=== PATIENT | male | born 1990 | race Caucasian/White ===

== ENCOUNTER 2023-01-04 13:39 | Inpatient (IN) | payer OTHER ==
[~2023-01-04] VITALS: Ht 157.5 cm; Wt 73.9 kg
[2023-01-04] MEDS ORDERED: MELATONIN 3 MG TABLET PO PRN (15:45)
[2023-01-04 17:00] VITALS: BP 138/78; PULSE 73; RESP 18; TEMP 98.6; O2SAT 98
[2023-01-04] MEDS ORDERED: SENNOSIDES 8.6 MG TABLET PO PRN (18:00)
[2023-01-04] MEDS ORDERED: DOCUSATE SODIUM 100 MG CAPSULE PO PRN (18:15)
[2023-01-04] MEDS ORDERED: POLYETHYLENE GLYCOL 3350 17 GM PACKET PO PRN (18:15)
[2023-01-04] MEDS: ACETAMINOPHEN 325 MG TABLET PO SCH ×2 (19:43→23:02)
[2023-01-04 20:20] VITALS: BP 131/71; PULSE 98; RESP 20; TEMP 99.7; O2SAT 98
[2023-01-04] MEDS: GABAPENTIN 300 MG CAPSULE PO SCH (20:22)
[2023-01-04 21:20] VITALS: TEMP 99
[2023-01-04] MEDS: MELATONIN 5 MG TABLET PO PRN (23:29)
[2023-01-05 00:40] VITALS: O2SAT 99
[2023-01-05] MEDS: ACETAMINOPHEN 325 MG TABLET PO SCH ×3 (06:18→23:07)
[2023-01-05 06:27] VITALS: TEMP 98.6
[2023-01-05 07:19] LABS: BASOPHILS % (AUTO) 0.4 % (0.0-2.0); EOSINOPHILS % (AUTO) 0.6 % (1.0-6.0); HEMATOCRIT 33.2 % (41-53); HEMOGLOBIN 11.5 g/dL (13.5-17.5); LYMPHOCYTES # (AUTO) 2.1 K/uL (1.0-4.8); LYMPHOCYTES % (AUTO) 17.6 % (22.0-44.0); MEAN CORPUSCULAR HEMOGLOBIN 31.6 pg (26.0-34.0); MEAN CORPUSCULAR HGB CONC 34.5 G/dL (31.0-37.0); MEAN CORPUSCULAR VOLUME 92 fL (80-100); MONOCYTES # (AUTO) 1.3 K/uL (0.1-1.0); MONOCYTES % (AUTO) 11.3 % (2.0-9.0); NEUTROPHILS # (AUTO) 8.3 K/uL (1.8-7.7); NEUTROPHILS % (AUTO) 70.1 % (40.0-70.0); PLATELET COUNT (AUTO) 234 K/uL (150-450); RED BLOOD CELL COUNT(AUTO) 3.63 MIL/uL (4.50-5.90); RED CELL DISTRIBUTION WIDTH 12.4 % (11.5-14.5)
[2023-01-05 07:33] LABS: ALANINE AMINOTRANSFERASE 58 U/L (12-78); ALBUMIN 3.3 g/dL (3.4-5.0); ALKALINE PHOSPHATASE 64 U/L (46-116); ANION GAP 9 mmol/L (8-16); ASPARTATE AMINOTRANSFERASE 33 U/L (15-37); BILIRUBIN,TOTAL 1.2 mg/dL (0.1-1.0); CALCIUM, TOTAL 9.4 mg/dL (8.8-10.5); CARBON DIOXIDE 27 mmol/L (22-29); CHLORIDE 98 mmol/L (98-107); CREATININE 0.74 mg/dL (0.60-1.30); GLOMERULAR FILTR. RATE CALC > 60 mL/min (>60); GLUCOSE,RANDOM 107 mg/dL (70-110); POTASSIUM 4.2 mmol/L (3.5-5.1); SODIUM SERUM 134 mmol/L (136-145); TOTAL PROTEIN, SERUM 7.4 g/dL (6.4-8.2)
[2023-01-05] MEDS: GABAPENTIN 300 MG CAPSULE PO SCH ×3 (08:10→21:01)
[2023-01-05] MEDS: ENOXAPARIN SODIUM 40 MG/0.4 ML PF SYRINGE SQ SCH (08:10)
[2023-01-05 09:29] VITALS: BP 133/76; PULSE 97; RESP 20; TEMP 98.9; O2SAT 74
[2023-01-05 10:03] VITALS: O2SAT 97
[2023-01-05 21:01] VITALS: BP 151/82; PULSE 100; RESP 20; TEMP 98.5; O2SAT 100
[2023-01-05] MEDS: MELATONIN 5 MG TABLET PO PRN (22:23)
[2023-01-06] MEDS: IBUPROFEN 600 MG TABLET PO PRN ×2 (00:30→08:47)
[2023-01-06] MEDS: ACETAMINOPHEN 325 MG TABLET PO SCH ×4 (05:04→18:00)
[2023-01-06] MEDS: ENOXAPARIN SODIUM 40 MG/0.4 ML PF SYRINGE SQ SCH (08:48)
[2023-01-06] MEDS: GABAPENTIN 300 MG CAPSULE PO SCH ×3 (08:48→21:15)
[2023-01-06 09:02] VITALS: BP 134/76; PULSE 74; RESP 18; TEMP 99.1; O2SAT 98
[2023-01-06 21:15] VITALS: BP 137/91; PULSE 99; RESP 18; TEMP 99.3; TEMP 99.4; O2SAT 99
[2023-01-07] MEDS: ACETAMINOPHEN 325 MG TABLET PO SCH ×4 (00:02→18:05)
[2023-01-07 08:05] VITALS: BP 138/84; PULSE 76; RESP 18; TEMP 97.9; O2SAT 97
[2023-01-07] MEDS: ENOXAPARIN SODIUM 40 MG/0.4 ML PF SYRINGE SQ SCH (08:19)
[2023-01-07] MEDS: GABAPENTIN 300 MG CAPSULE PO SCH ×3 (08:19→20:34)
[2023-01-07] MEDS: IBUPROFEN 600 MG TABLET PO PRN (09:52)
[2023-01-07 10:58] LABS: APPEARANCE,URINE CLEAR (CLEAR); BILIRUBIN,URINE NEGATIVE (NEGATIVE); GLUCOSE, URINE (UA) NEGATIVE (NEGATIVE); KETONES,URINE NEGATIVE (NEGATIVE); LEUKOCYTE ESTERASE ,URINE NEGATIVE (NEGATIVE); NITRATE,URINE NEGATIVE (NEGATIVE); OCCULT BLOOD,URINE TRACE (NEGATIVE); PROTEIN,URINE NEGATIVE (NEGATIVE); UROBILINOGEN,URINE <=1.0 mg/dL (<=1.0)
[2023-01-07 12:06] LABS: BACTERIA,URINE None Seen /HPF (None Seen); RBC,URINE 0-2 /HPF (0-2); SQUAMOUS EPITHELIAL CELL,UR None Seen /LPF (None Seen); WBC,URINE None Seen /HPF (0-5)
[2023-01-07 20:30] VITALS: O2SAT 100
[2023-01-08] MEDS: OxyCODONE HCL 5 MG IR TABLET PO PRN (00:02)
[2023-01-08] MEDS: ACETAMINOPHEN 325 MG TABLET PO SCH ×4 (00:06→18:09)
[2023-01-08 01:00] VITALS: BP 136/93; PULSE 86; RESP 18; TEMP 99.1; O2SAT 100
[2023-01-08 06:55] LABS: BASOPHILS % (AUTO) 0.3 % (0.0-2.0); HEMATOCRIT 33.4 % (41-53); HEMOGLOBIN 11.5 g/dL (13.5-17.5); LYMPHOCYTES # (AUTO) 2.2 K/uL (1.0-4.8); LYMPHOCYTES % (AUTO) 19.2 % (22.0-44.0); MEAN CORPUSCULAR HEMOGLOBIN 31.7 pg (26.0-34.0); MEAN CORPUSCULAR HGB CONC 34.4 G/dL (31.0-37.0); MEAN CORPUSCULAR VOLUME 92 fL (80-100); MONOCYTES # (AUTO) 1.2 K/uL (0.1-1.0); NEUTROPHILS # (AUTO) 8.1 K/uL (1.8-7.7); NEUTROPHILS % (AUTO) 69.5 % (40.0-70.0); PLATELET COUNT (AUTO) 289 K/uL (150-450); RED BLOOD CELL COUNT(AUTO) 3.63 MIL/uL (4.50-5.90); RED CELL DISTRIBUTION WIDTH 12.7 % (11.5-14.5)
[2023-01-08] MEDS: GABAPENTIN 300 MG CAPSULE PO SCH ×3 (08:14→20:49)
[2023-01-08 08:15] VITALS: BP 137/88; PULSE 88; RESP 20; TEMP 97.6; O2SAT 98
[2023-01-08 09:29] LABS: ANION GAP 8 mmol/L (8-16); CALCIUM, TOTAL 9.2 mg/dL (8.8-10.5); CARBON DIOXIDE 27 mmol/L (22-29); CHLORIDE 101 mmol/L (98-107); CREATININE 0.68 mg/dL (0.60-1.30); GLOMERULAR FILTR. RATE CALC > 60 mL/min (>60); GLUCOSE,RANDOM 87 mg/dL (70-110); POTASSIUM 4.1 mmol/L (3.5-5.1); SODIUM SERUM 136 mmol/L (136-145)
[2023-01-08 16:00] VITALS: O2SAT 98
[2023-01-08 20:48] VITALS: BP 150/92; PULSE 100; RESP 20; TEMP 98.4; O2SAT 98
[2023-01-08] MEDS: IBUPROFEN 600 MG TABLET PO PRN (20:48)
[2023-01-09] MEDS: ACETAMINOPHEN 325 MG TABLET PO SCH ×6 (00:26→17:24)
[2023-01-09] MEDS: OxyCODONE HCL 5 MG IR TABLET PO PRN ×2 (01:59→16:33)
[2023-01-09 02:35] VITALS: O2SAT 98
[2023-01-09 08:05] VITALS: BP 132/81; PULSE 80; RESP 18; TEMP 98.1; O2SAT 98
[2023-01-09] MEDS: GABAPENTIN 300 MG CAPSULE PO SCH ×3 (08:26→21:04)
[2023-01-09 08:56] VITALS: O2SAT 98
[2023-01-09 11:35] VITALS: BP 136/80; PULSE 85; RESP 18; O2SAT 98
[2023-01-09] MEDS: IBUPROFEN 600 MG TABLET PO PRN (15:07)
[2023-01-09 21:04] VITALS: BP 138/80; PULSE 100; PULSE 98; RESP 20; TEMP 98.3; O2SAT 100
[2023-01-10] MEDS: ACETAMINOPHEN 325 MG TABLET PO SCH ×4 (00:01→18:06)
[2023-01-10] MEDS: GABAPENTIN 300 MG CAPSULE PO SCH ×3 (08:23→19:42)
[2023-01-10 09:09] VITALS: O2SAT 97
[2023-01-10 09:38] VITALS: BP 143/78; PULSE 97; RESP 20; TEMP 98.6; O2SAT 97
[2023-01-10] MEDS: OxyCODONE HCL 5 MG IR TABLET PO PRN (19:43)
[2023-01-10 21:00] VITALS: BP 137/90; PULSE 109; RESP 20; TEMP 98.5; O2SAT 98
[2023-01-11] MEDS: ACETAMINOPHEN 325 MG TABLET PO SCH ×4 (00:33→23:04)
[2023-01-11] MEDS: OxyCODONE HCL 5 MG IR TABLET PO PRN ×2 (02:13→19:56)
[2023-01-11 08:00] VITALS: BP 149/78; PULSE 98; RESP 18; TEMP 99.5; O2SAT 98
[2023-01-11] MEDS: GABAPENTIN 300 MG CAPSULE PO SCH ×3 (08:22→21:04)
[2023-01-11] MEDS: IBUPROFEN 600 MG TABLET PO PRN (08:22)
[2023-01-11 09:15] VITALS: TEMP 99
[2023-01-11 13:00] VITALS: TEMP 98.1
[2023-01-11 19:56] VITALS: BP 146/88; PULSE 106; RESP 20; TEMP 98.7; O2SAT 100
[2023-01-11 20:00] VITALS: BP 146/88; PULSE 106; RESP 20; TEMP 98.7; O2SAT 100
[2023-01-11] MEDS: ETHYL ALCOHOL 62% ANTISEPTIC NASAL SANITIZER 0.6 ML AMPUL NASAL SCH (21:04)
[2023-01-12] MEDS: OxyCODONE HCL 5 MG IR TABLET PO PRN ×2 (00:40→22:59)
[2023-01-12] MEDS: ACETAMINOPHEN 325 MG TABLET PO SCH ×3 (06:00→18:34)
[2023-01-12] MEDS: GABAPENTIN 300 MG CAPSULE PO SCH ×3 (08:24→20:43)
[2023-01-12 08:30] VITALS: BP 137/81; PULSE 102; RESP 18; TEMP 97.7; O2SAT 98
[2023-01-12] MEDS: ETHYL ALCOHOL 62% ANTISEPTIC NASAL SANITIZER 0.6 ML AMPUL NASAL SCH ×2 (08:34→20:42)
[2023-01-12] MEDS: IBUPROFEN 600 MG TABLET PO PRN (16:06)
[2023-01-12 20:43] VITALS: BP 137/82; PULSE 107; RESP 18; TEMP 99; O2SAT 98
[2023-01-12] MEDS: MELATONIN 5 MG TABLET PO PRN (20:43)
[2023-01-13] MEDS: ACETAMINOPHEN 325 MG TABLET PO SCH ×4 (00:53→18:35)
[2023-01-13 06:00] VITALS: TEMP 98.7
[2023-01-13] MEDS: GABAPENTIN 300 MG CAPSULE PO SCH ×3 (08:01→20:35)
[2023-01-13] MEDS: ETHYL ALCOHOL 62% ANTISEPTIC NASAL SANITIZER 0.6 ML AMPUL NASAL SCH ×2 (08:01→20:37)
[2023-01-13 08:08] VITALS: BP 137/86; PULSE 84; RESP 18; TEMP 98.2; O2SAT 98
[2023-01-13 10:02] LABS: BASOPHILS % (AUTO) 0.3 % (0.0-2.0); EOSINOPHILS % (AUTO) 0.5 % (1.0-6.0); HEMATOCRIT 33.3 % (41-53); HEMOGLOBIN 11.3 g/dL (13.5-17.5); LYMPHOCYTES # (AUTO) 1.4 K/uL (1.0-4.8); LYMPHOCYTES % (AUTO) 15.3 % (22.0-44.0); MEAN CORPUSCULAR HEMOGLOBIN 31.3 pg (26.0-34.0); MEAN CORPUSCULAR HGB CONC 34.1 G/dL (31.0-37.0); MEAN CORPUSCULAR VOLUME 92 fL (80-100); MONOCYTES % (AUTO) 10.3 % (2.0-9.0); NEUTROPHILS # (AUTO) 6.9 K/uL (1.8-7.7); NEUTROPHILS % (AUTO) 73.6 % (40.0-70.0); PLATELET COUNT (AUTO) 313 K/uL (150-450); RED BLOOD CELL COUNT(AUTO) 3.62 MIL/uL (4.50-5.90); RED CELL DISTRIBUTION WIDTH 12.5 % (11.5-14.5)
[2023-01-13 10:12] LABS: ANION GAP 9 mmol/L (8-16); CALCIUM, TOTAL 9.6 mg/dL (8.8-10.5); CARBON DIOXIDE 27 mmol/L (22-29); CHLORIDE 99 mmol/L (98-107); CREATININE 0.77 mg/dL (0.60-1.30); GLOMERULAR FILTR. RATE CALC > 60 mL/min (>60); GLUCOSE,RANDOM 139 mg/dL (70-110); POTASSIUM 3.6 mmol/L (3.5-5.1); SODIUM SERUM 135 mmol/L (136-145)
[2023-01-13 10:21] LABS: ALANINE AMINOTRANSFERASE 59 U/L (12-78); ALBUMIN 3.1 g/dL (3.4-5.0); ALKALINE PHOSPHATASE 83 U/L (46-116); ASPARTATE AMINOTRANSFERASE 27 U/L (15-37); BILIRUBIN,TOTAL 0.7 mg/dL (0.1-1.0); C-REACTIVE PROTEIN QUANT 6.87 mg/dL (0.00-0.30); TOTAL PROTEIN, SERUM 7.8 g/dL (6.4-8.2)
[2023-01-13 20:01] VITALS: BP 143/80; PULSE 95; RESP 18; TEMP 98; O2SAT 95
[2023-01-13 20:57] VITALS: O2SAT 100
[2023-01-13] MEDS: MELATONIN 5 MG TABLET PO PRN (21:02)
[2023-01-13] MEDS: OxyCODONE HCL 5 MG IR TABLET PO PRN (22:27)
[2023-01-14] MEDS: ACETAMINOPHEN 325 MG TABLET PO SCH ×2 (01:09→06:17)
[2023-01-14] MEDS: IBUPROFEN 600 MG TABLET PO PRN (03:16)
[2023-01-14] MEDS ORDERED: IBUP-1492 PO (06:17)
[2023-01-14] MEDS ORDERED: ACET-3385 PO (06:17)
[2023-01-14] MEDS ORDERED: GABA-1181 PO (06:17)
[2023-01-14] MEDS ORDERED: DOCU-385 PO (06:17)
[2023-01-14] MEDS: GABAPENTIN 300 MG CAPSULE PO SCH (07:51)
[2023-01-14] MEDS: ETHYL ALCOHOL 62% ANTISEPTIC NASAL SANITIZER 0.6 ML AMPUL NASAL SCH (07:51)
[2023-01-14 08:40] VITALS: BP 127/78; PULSE 76; RESP 18; TEMP 98.1; O2SAT 98
== END 2023-01-15 13:24 | disposition home or self-care (01) | DRG 964 ==
LOC: 2WR 16:50
PROVIDERS: ADMIT Physical Medicine & Rehabilitation; ATTEND Physical Medicine & Rehabilitation
DX: S02.11BA Type I occipital condyle fracture, left side, initial encounter for closed fracture (principal); S14.106A Unspecified injury at C6 level of cervical spinal cord, initial encounter; E46 Unspecified protein-calorie malnutrition; S14.3XXA Injury of brachial plexus, initial encounter; S52.502A Unspecified fracture of the lower end of left radius, initial encounter for closed fracture; S52.202A Unspecified fracture of shaft of left ulna, initial encounter for closed fracture; E87.1 Hypo-osmolality and hyponatremia; S82.891A Other fracture of right lower leg, initial encounter for closed fracture; S62.306A Unspecified fracture of fifth metacarpal bone, right hand, initial encounter for closed fracture; R26.9 Unspecified abnormalities of gait and mobility; F43.10 Post-traumatic stress disorder, unspecified; D72.829 Elevated white blood cell count, unspecified; Z68.30 Body mass index [BMI] 30.0-30.9, adult; Z63.4 Disappearance and death of family member; Z63.5 Disruption of family by separation and divorce; Z87.442 Personal history of urinary calculi; V29.99XA Rider (driver) (passenger) of other motorcycle injured in unspecified traffic accident, initial encounter; Y93.89 Activity, other specified; Y92.89 Other specified places as the place of occurrence of the external cause; Y99.8 Other external cause status
CPT/HCPCS: 80048; 80053; 81001; 85025; 86140; 87081; 92523; 93970; 97110; 97112; 97116; 97140; 97162; 97167; 97530; 97535; 99366; J1650; Q9967